=== PATIENT | male | born 1980 | race Caucasian/White ===

== ENCOUNTER 2021-07-11 14:24 | Emergency (ER) | payer BC ==
[2021-07-11] MEDS ORDERED: Sulfamethoxazole/Trimethoprim 800-160 MG Tab PO ONE ×2 (14:25→15:37)
[2021-07-11] MEDS ORDERED: Cephalexin 500 MG Cap PO ONE (14:25)
[2021-07-11] MEDS ORDERED: Bacitracin Oint 1 GM U/D Packet TOP ONE (15:37)
[2021-07-11] MEDS ORDERED: cefTRIAXone 1 GM, Lidocaine 1% 2.1 ML IM ONE ×2 (15:38)
[2021-07-11] MEDS ORDERED: Diphtheria,Pertussis(Acell),Tetanus Vaccine 0.5 ML Syringe IM ONE (15:38)
[2021-07-11] MEDS ORDERED: Sulfamethoxazole/Trimethoprim 800-160 MG Tab ONE (16:17)
[2021-07-11] MEDS ORDERED: Cephalexin 500 MG Cap ONE (16:17)
== END 2021-07-11 16:25 | disposition home or self-care (01) ==
LOC: DL.ED 14:24
DX: S50.811A Abrasion of right forearm, initial encounter (principal); L08.9 Local infection of the skin and subcutaneous tissue, unspecified; L03.113 Cellulitis of right upper limb; Z23 Encounter for immunization; X58.XXXA Exposure to other specified factors, initial encounter
CPT/HCPCS: 90471; 90715; 96372; 99282-25; A9270-GY; J0696